=== PATIENT | male | born 1990 | race African-American/Black ===

== ENCOUNTER 2022-08-21 14:50 | Emergency (ER) | payer BC, SELFPAY | END 2022-08-21 16:27 | disposition home or self-care (01) | LOC: CSHERS 14:50 | DX: M54.50 Low back pain, unspecified (principal) | CPT/HCPCS: 99283 ==

== ENCOUNTER 2022-08-29 09:03 | Emergency (ER) | payer SELFPAY ==
[2022-08-29] MEDS ORDERED: Ibuprofen 200 MG TAB ONE (09:30)
[2022-08-29] MEDS ORDERED: Acetaminophen 500 MG TAB ONE (09:30)
[2022-08-29] MEDS ORDERED: Dexamethasone 10 MG/ML VIAL ONE (09:30)
== END 2022-08-29 09:35 | disposition home or self-care (01) ==
LOC: CSHERS 09:03
DX: J02.9 Acute pharyngitis, unspecified (principal); R19.7 Diarrhea, unspecified; F17.210 Nicotine dependence, cigarettes, uncomplicated
CPT/HCPCS: 99283; J1100

== ENCOUNTER 2023-07-11 21:34 | Emergency (ER) | payer SELFPAY | END 2023-07-11 22:20 | disposition home or self-care (01) | LOC: CSHERS 21:34 | DX: J01.90 Acute sinusitis, unspecified (principal); F17.210 Nicotine dependence, cigarettes, uncomplicated | CPT/HCPCS: 99283 ==